=== PATIENT | female | born 1975 | race Caucasian/White ===

== ENCOUNTER → 2016-11-30 | Outpatient (CLI) | payer MEDICAID ==
[~2016-11-30] MED LIST: MULTIPLE VITAMI1 CAP PO; NORCO 325 MG-7.1 TAB PO; OMEGA-3 1000 MG1 CAP PO
== END ==
LOC: COL.RAD 12:04
DX: Z90.12 Acquired absence of left breast and nipple (principal); Z85.3 Personal history of malignant neoplasm of breast
CPT/HCPCS: A9541

== ENCOUNTER 2017-11-30 11:03 | Day surgery (SDC) | payer MEDICAID ==
[~2017-11-30] VITALS: Ht 154.9 cm; Wt 60.6 kg
[2017-11-30 11:34] VITALS: BP 122/84; PULSE 67; TEMP 97.8
[2017-11-30] MEDS ORDERED: NOLVADEX 1010 MG/TAB (11:47)
[2017-11-30] MEDS ORDERED: TAMOXIFEN CITRA20 MG PO (11:48)
[2017-11-30 12:45] VITALS: BP 105/71; PULSE 61; TEMP 97.9
[2017-11-30 13:00] VITALS: BP 108/80; PULSE 62
[2017-11-30 13:15] VITALS: BP 112/76; PULSE 59
[2017-11-30 13:30] VITALS: BP 111/76; PULSE 65
== END 2017-11-30 13:55 | disposition home or self-care (01) ==
LOC: SDCO 11:03
DX: K59.00 Constipation, unspecified (principal)
CPT/HCPCS: J2250; J2405; J3010; J7030

== ENCOUNTER → 2020-11-24 | Outpatient (CLI) | payer MEDICAID ==
[~2020-11-24] MED LIST changes: +NOLVADEX 1010 MG/TAB; +TAMOXIFEN CITRA20 MG PO
== END ==
LOC: COL.RAD 12:35
DX: D21.9 Benign neoplasm of connective and other soft tissue, unspecified (principal); N83.201 Unspecified ovarian cyst, right side